=== PATIENT | male | born 1950 | race Asian ===

== ENCOUNTER 2020-04-29 15:09 | Emergency (ER) | payer MEDICARE, OTHER ==
[2020-04-29] MEDS ORDERED: DIPH/PERTUSS(ACELL)/TETANUS VAC/PF 0.5 ML SYR (>=10YO) IM ONE (16:04)
[2020-04-29] MEDS ORDERED: HYDROCODONE/ACETAMINOPHEN 5-325 MG TABLET PO ONE ×2 (16:04→22:23)
[2020-04-29] MEDS ORDERED: LIDOCAINE 1% INJ-PF (10 MG/ML) 30 ML SDV INJ ONE (16:06)
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
--- NOTE | 2020-04-29 16:33 | RADIOLOGY REPORT (SQ) ---
EXAM DESCRIPTION: KNEE LEFT 4 VIEW IMAGES COMPLETED DATE/TIME: 04/29/2020 4:19 pm REASON FOR STUDY: lac from chainsaw over the patella COMPARISON: None. NUMBER OF VIEWS: Four views. TECHNIQUE: AP, lateral, and both oblique radiographic images acquired of the left knee. LIMITATIONS: None. FINDINGS: MINERALIZATION: Normal. BONES: A subtle lucency traverses the patella without discrete anterior cortical lucency. JOINT: No effusion. SOFT TISSUES: Atherosclerotic vascular calcifications. No retained radiopaque foreign body. OTHER: No other significant finding. IMPRESSION: Subtle findings suggest a nondisplaced transverse fracture of the patella. TECHNICAL DOCUMENTATION: JOB ID: [id number] 2010 [employer]- All Rights Reserved Reading location - IP/workstation name: [email or web address]
[2020-04-29] MEDS ORDERED: CEFAZOLIN 2 GM/D5W RTU 2 GM/50 ML RTUPB IV ONE (17:27)
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
[2020-04-30 00:27] VITALS: BP 149/89
== END 2020-04-30 00:16 | disposition home or self-care (01) ==
LOC: ER 15:09
PROC: 0HQLXZZ Repair Left Lower Leg Skin, External Approach (ICD-10-PCS; principal; 2020-04-29)
DX: S82.035 Nondisplaced transverse fracture of left patella (principal); M79.605 Pain in left leg; W29.3XXA Contact with powered garden and outdoor hand tools and machinery, initial encounter; Z23 Encounter for immunization
CPT/HCPCS: 99284; 90471; 96365; 73564; 90715; 12002; J3490; J0690; A9270